=== PATIENT | male | born 1990 | race Hispanic/Latino ===

== ENCOUNTER 2021-09-03 08:14 | Emergency (ER) | payer SELFPAY | END 2021-09-03 09:33 | disposition home or self-care (01) | LOC: ERS 08:14 | DX: B34.9 Viral infection, unspecified (principal) | CPT/HCPCS: 87804; 99283 ==

== ENCOUNTER 2023-07-02 11:03 | Emergency (ER) | payer SELFPAY | END 2023-07-02 12:15 | disposition home or self-care (01) | LOC: ERS 11:03 | DX: K62.89 Other specified diseases of anus and rectum (principal) | CPT/HCPCS: 99283 ==

== ENCOUNTER 2023-11-08 14:30 | Emergency (ER) | payer SELFPAY ==
[2023-11-08 14:54] LABS: #Basophils 0.07 10x3/uL (0.0-0.2); %Basophils 0.6 % (0.0-1.0); %Lymphocytes 27.4 % (21.0-51.0); %Monocytes 4.4 % (0.0-10.0); %Neutrophils 64.9 % (42.0-75.0); Hematocrit 48.2 % (42.0-52.0); Hemoglobin 16.7 g/dL (14.0-18.0); Mean Corpuscular HGB CONC 34.6 g/dL (32.0-36.0); Mean Corpuscular Hemoglobin 31.8 pg (27.0-31.0); Mean Corpuscular Volume 91.8 fL (78.0-98.0); Mean Platelet Volume 10.4 fL (7.4-10.4); Platelet Count 222 10x3/uL (130-400); Red Blood Cell (RBC) Count 5.25 mill/uL (4.70-6.10)
[2023-11-08 15:17] LABS: ALT (SGPT) 23 U/L (8-55); AST (SGOT) 21 U/L (5-34); Albumin 3.4 g/dL (3.5-5.0); Alkaline Phosphatase 55 U/L (40-110); Anion Gap 10 mmol/L (10-20); BUN (Urea Nitrogen) 15 mg/dL (8.9-20.6); Bilirubin, Total 0.3 mg/dL (0.2-1.2); Calc. Creatinine Clearance 0 mL/min (70-130); Calcium 8.4 mg/dL (7.8-10.44); Carbon Dioxide 22 mmol/L (22-29); Chloride 107 mmol/L (98-107); Estimated GFR 102; Globulin 2.3 g/dL (2.4-3.5); Glucose 94 mg/dL (70-105); Lipase 12 U/L (8-78); Protein, Total 5.7 g/dL (6.0-8.3)
[2023-11-08 15:32] LABS: Sodium 135 mmol/L (136-145)
[2023-11-08 16:05] LABS: Bacteria/HPF None Seen HPF (None Seen); Bilirubin Negative (Negative); Blood, Urine Negative (Negative); CAUTI Indications for Culture Pelvic or flank pain; Clarity Clear (Clear); Glucose, Urine (Dipstick) Normal (Negative); Ketone, Urine Negative (Negative); Leukocyte Negative Leu/uL (Negative); Nitrite Negative (Negative); Protein, Urine (Dipstick) Negative (Neg-Trace); RBC/HPF 0-3 HPF (0-3); Specific Gravity, Urine 1.023 (1.002-1.036); Squamous Epithelial 0-3 HPF (0-3); Urobilinogen Normal mg/dL (Less than 2); pH, Urine 6.5 (5.0-9.0)
[2023-11-08 16:07] LABS: Urine Culture Reflex No No
[2023-11-08] MEDS ORDERED: Ketorolac Tromethamine 30 MG (1 mL) VIAL ONE (16:08)
[2023-11-08] MEDS ORDERED: Famotidine 20 MG TAB ONE (16:08)
[2023-11-08] MEDS ORDERED: Lidocaine 2% Viscous 10 mL, Alum & Magn 30 mL SSW SCH (16:15)
== END 2023-11-08 16:42 | disposition home or self-care (01) ==
LOC: ERS 14:30
DX: K52.9 Noninfective gastroenteritis and colitis, unspecified (principal)
CPT/HCPCS: 36415; 80053; 81001; 83690; 85025; 96372; 99283; J1885

== ENCOUNTER 2023-12-21 18:20 | Emergency (ER) | payer SELFPAY ==
[2023-12-21] MEDS ORDERED: Bicillin LA 2.4 MILL.UNITS/4 ML SYRINGE ONE (18:48)
[2023-12-21 19:43] LABS: HIV (1/2) Antibody/Antigen NONREACTIVE (NonReactive); HIV 1/2 INDEX 0.04 S/CO (<1.00)
[2023-12-21 22:27] LABS: Chlam.trachomatis by PCR,Urine Not Detected (NotDetected); GC N.gonorrhoeae PCR,UrineVOID Not Detected (NotDetected)
[2023-12-22 18:12] LABS: Syphilis Antibody Index 21.96 S/CO (<1.00 Non-Reactive)
[2023-12-22 19:52] LABS: Syphilis Antibody REACTIVE (Nonreactive)
== END 2023-12-21 18:49 | disposition home or self-care (01) ==
LOC: ERS 18:20
DX: N48.5 Ulcer of penis (principal)
CPT/HCPCS: 36415; 86593; 86780; 87389; 87491; 87591; 96372; 99283; J0561

== ENCOUNTER 2024-01-16 10:56 | Emergency (ER) | payer SELFPAY | END 2024-01-16 11:08 | disposition home or self-care (01) | LOC: ERS 10:56 | DX: J06.9 Acute upper respiratory infection, unspecified (principal) | CPT/HCPCS: 99282 ==

== ENCOUNTER 2024-11-21 21:50 | Emergency (ER) | payer SELFPAY | END 2024-11-21 22:37 | disposition home or self-care (01) | LOC: ERS 21:50 | DX: H10.9 Unspecified conjunctivitis (principal); F17.290 Nicotine dependence, other tobacco product, uncomplicated | CPT/HCPCS: 99283 ==

== ENCOUNTER 2025-01-17 21:10 | Emergency (ER) | payer SELFPAY ==
[2025-01-17 21:33] LABS: Bacteria/HPF None Seen HPF (None Seen); CAUTI Indications for Culture Dysuria,urgency,freq; Glucose, Urine (Dipstick) Normal (Negative); Leukocyte Negative Leu/uL (Negative); Protein, Urine (Dipstick) Negative (Neg-Trace); RBC/HPF None Seen HPF (0-3); Specific Gravity, Urine 1.013 (1.002-1.036); Urine Culture Reflex No No; WBC/HPF 0-3 HPF (0-3)
[2025-01-17] MEDS ORDERED: cefTRIAXone (ROCEPHIN) 500 MG VIAL ONE (22:15)
[2025-01-17] MEDS ORDERED: Azithromycin 250 MG TAB ONE (22:15)
[2025-01-18 04:25] LABS: Chlam.trachomatis by PCR,Urine Not Detected (NotDetected); GC N.gonorrhoeae PCR,UrineVOID Not Detected (NotDetected)
== END 2025-01-17 22:22 | disposition home or self-care (01) ==
LOC: ERS 21:10
DX: Z20.2 Contact with and (suspected) exposure to infections with a predominantly sexual mode of transmission (principal); F17.290 Nicotine dependence, other tobacco product, uncomplicated
CPT/HCPCS: 81001; 87491; 87591; 96372; 99283; J0696